=== PATIENT | male | born 1985 | race Asian ===

== ENCOUNTER 2017-06-11 08:37 | Inpatient (IN) | payer MEDICARE, OTHER ==
[~2017-06-11] VITALS: Ht 154.9 cm; Wt 45.8 kg
[2017-06-11] MEDS ORDERED: TOPI25 PO (08:55)
[2017-06-11 09:15] LABS: BASOPHILS % (AUTO) 1.2 % (0.0-2.0); EOSINOPHILS % (AUTO) 0.7 % (1.0-6.0); HEMATOCRIT 48.4 % (41-53); LYMPHOCYTES # (AUTO) 1.8 K/uL (1.0-4.8); LYMPHOCYTES % (AUTO) 25.4 % (22.0-44.0); MEAN CORPUSCULAR HEMOGLOBIN 30.5 pg (26.0-34.0); MEAN CORPUSCULAR HGB CONC 35.1 G/dL (31.0-37.0); MEAN CORPUSCULAR VOLUME 87 fL (80-100); MONOCYTES # (AUTO) 0.6 K/uL (0.1-1.0); MONOCYTES % (AUTO) 8.1 % (2.0-9.0); NEUTROPHILS # (AUTO) 4.6 K/uL (1.8-7.7); NEUTROPHILS % (AUTO) 64.6 % (40.0-70.0); PLATELET COUNT (AUTO) 303 K/uL (150-450); RED BLOOD CELL COUNT(AUTO) 5.57 MIL/uL (4.50-5.90); RED CELL DISTRIBUTION WIDTH 13.4 % (11.5-14.5)
[2017-06-11 09:55] LABS: AMPHET/METH SCREEN,URINE NEGATIVE (NEGATIVE); BARBITURATE SCREEN, URINE NEGATIVE (NEGATIVE); BENZODIAZEPINES SCREEN,URINE NEGATIVE (NEGATIVE); CANNABINOID SCREEN,URINE NEGATIVE (NEGATIVE); COCAINE SCREEN,URINE NEGATIVE (NEGATIVE); METHADONE SCREEN, URINE NEGATIVE (NEGATIVE); OPIATE SCREEN,URINE NEGATIVE (NEGATIVE)
[2017-06-11 09:56] LABS: PHENCYCLIDINE SCREEN,URINE NEGATIVE (NEGATIVE)
[2017-06-11 10:14] LABS: ANION GAP 11 mmol/L (8-16); CALCIUM, TOTAL 9.5 mg/dL (8.8-10.5); CARBON DIOXIDE 29 mmol/L (22-29); CHLORIDE 100 mmol/L (98-107); CREATININE 1.24 mg/dL (0.60-1.30); GLOMERULAR FILTR. RATE CALC > 60 mL/min (>60); GLUCOSE,RANDOM 102 mg/dL (70-110); POTASSIUM 3.4 mmol/L (3.5-5.1); SODIUM SERUM 140 mmol/L (136-145); UREA NITROGEN, BLOOD 18 mg/dL (7-18)
[2017-06-11 10:20] LABS: ALANINE AMINOTRANSFERASE 48 U/L (12-78); ALBUMIN 4.7 g/dL (3.4-5.0); ALKALINE PHOSPHATASE 72 U/L (46-116); ASPARTATE AMINOTRANSFERASE 25 U/L (15-37); BILIRUBIN,TOTAL 0.6 mg/dL (0.1-1.0)
[2017-06-11] MEDS ORDERED: GuaiFENesin/D-METHORPHAN [SUGAR-FREE] 200-20MG/10 ML SYRUP UDCUP PO PRN (14:00)
[2017-06-11] MEDS ORDERED: OLANZapine 5 MG RAPDIS TABLET PO PRN (14:00)
[2017-06-11] MEDS ORDERED: HydrOXYzine PAMOATE 50 MG CAPSULE PO PRN (14:00)
[2017-06-11] MEDS ORDERED: TUBERCULIN, PURIFIED PROTEIN DERIVATIVE 5 TU/0.1 ML SYG ID ONE (14:00)
[2017-06-11] MEDS ORDERED: LOPERAMIDE HCL 2 MG CAPSULE PO PRN (14:00)
[2017-06-11] MEDS ORDERED: MAGNESIUM HYDROXIDE SUSPENSION 30 ML UDCUP PO PRN (14:00)
[2017-06-11] MEDS ORDERED: ZOLPIDEM TARTRATE 10 MG TABLET PO PRN (14:00)
[2017-06-11] MEDS ORDERED: LORazepam 2 MG TABLET PO PRN (14:00)
[2017-06-11] MEDS ORDERED: PROMETHAZINE HCL 25 MG TABLET PO PRN (14:00)
[2017-06-11] MEDS ORDERED: MAG HYDROX/AL HYDROX/SIMETH ES 30 ML SUSPENSION UDCUP PO PRN (14:00)
[2017-06-11] MEDS ORDERED: ACETAMINOPHEN 325 MG TABLET PO PRN (14:00)
[2017-06-11 16:23] VITALS: BP 116/77
[2017-06-11] MEDS ORDERED: POTASSIUM CHLORIDE 20 MEQ ER TABLET PO ONE (17:15)
[2017-06-11] MEDS: THIAMINE HCL 100 MG TABLET PO SCH (17:30)
[2017-06-11] MEDS: PRAZOSIN HCL 1 MG CAPSULE PO SCH ×2 (20:58→21:00)
[2017-06-11] MEDS: OLANZapine 5 MG RAPDIS TABLET PO SCH ×2 (20:59→21:00)
[2017-06-12 06:34] VITALS: BP 126/83
[2017-06-12 08:23] VITALS: BP 116/81
[2017-06-12 08:29] LABS: BASOPHILS % (AUTO) 0.6 % (0.0-2.0); EOSINOPHILS % (AUTO) 0.5 % (1.0-6.0); HEMATOCRIT 47.7 % (41-53); HEMOGLOBIN 16.6 g/dL (13.5-17.5); LYMPHOCYTES % (AUTO) 26.8 % (22.0-44.0); MEAN CORPUSCULAR HEMOGLOBIN 30.5 pg (26.0-34.0); MEAN CORPUSCULAR HGB CONC 34.8 G/dL (31.0-37.0); MEAN CORPUSCULAR VOLUME 88 fL (80-100); MONOCYTES # (AUTO) 0.7 K/uL (0.1-1.0); MONOCYTES % (AUTO) 9.1 % (2.0-9.0); NEUTROPHILS # (AUTO) 4.7 K/uL (1.8-7.7); PLATELET COUNT (AUTO) 309 K/uL (150-450); RED BLOOD CELL COUNT(AUTO) 5.44 MIL/uL (4.50-5.90); RED CELL DISTRIBUTION WIDTH 13.2 % (11.5-14.5)
[2017-06-12] MEDS: THIAMINE HCL 100 MG TABLET PO SCH ×2 (08:32→16:11)
[2017-06-12] MEDS: MULTIVITAMINS WITH MINERALS, THERAPEUTIC TABLET PO SCH (08:32)
[2017-06-12] MEDS: NALTREXONE HCL 50 MG TABLET PO SCH (08:32)
[2017-06-12] MEDS: FOLIC ACID 1 MG TABLET PO SCH (08:33)
[2017-06-12] MEDS ORDERED: FLUoxetine HCL 20 MG CAPSULE PO SCH (09:00)
[2017-06-12 09:29] LABS: ALANINE AMINOTRANSFERASE 32 U/L (12-78); ALBUMIN 4.5 g/dL (3.4-5.0); ALKALINE PHOSPHATASE 73 U/L (46-116); ANION GAP 7 mmol/L (8-16); ASPARTATE AMINOTRANSFERASE 19 U/L (15-37); BILIRUBIN,TOTAL 0.8 mg/dL (0.1-1.0); CALCIUM, TOTAL 9.3 mg/dL (8.8-10.5); CARBON DIOXIDE 30 mmol/L (22-29); CHLORIDE 103 mmol/L (98-107); CHOL/HDL RATIO 2.9 (4.2-7.3); CHOLESTEROL 207 mg/dL (131-200); CREATININE 1.21 mg/dL (0.60-1.30); FREE T4 (FREE THYROXINE) 1.17 ng/dL (0.76-1.46); GLOMERULAR FILTR. RATE CALC > 60 mL/min (>60); GLUCOSE,RANDOM 114 mg/dL (70-110); HDL CHOLESTEROL 71 mg/dL (40-60); LDL CHOL (CALC.) 127 mg/dL (0-130); POTASSIUM 3.5 mmol/L (3.5-5.1); SODIUM SERUM 140 mmol/L (136-145); THYROID STIMULATING HORMONE 1.78 uIU/mL (0.36-3.74); TOTAL PROTEIN, SERUM 8.7 g/dL (6.4-8.2); TRIGLYCERIDES 45 mg/dL (15-150)
[2017-06-12 09:30] LABS: HEMOGLOBIN A1C 4.9 % (4.5-6.2)
[2017-06-12 09:34] LABS: UREA NITROGEN, BLOOD 17 mg/dL (7-18)
[2017-06-12 16:10] VITALS: BP 138/76
[2017-06-12] MEDS: MIRTAZAPINE 15 MG TABLET PO SCH (20:21)
[2017-06-12] MEDS: OLANZapine 5 MG RAPDIS TABLET PO SCH (20:22)
[2017-06-13 06:00] VITALS: BP 116/81
[2017-06-13 08:28] VITALS: BP 121/81
[2017-06-13] MEDS: THIAMINE HCL 100 MG TABLET PO SCH ×2 (10:14→17:01)
[2017-06-13] MEDS: MULTIVITAMINS WITH MINERALS, THERAPEUTIC TABLET PO SCH (10:14)
[2017-06-13] MEDS: NALTREXONE HCL 50 MG TABLET PO SCH (10:14)
[2017-06-13] MEDS: FOLIC ACID 1 MG TABLET PO SCH (10:14)
[2017-06-13] MEDS ORDERED: OLAN5TAB30 PO (13:46)
[2017-06-13] MEDS ORDERED: MIRT15 PO (13:46)
[2017-06-13] MEDS ORDERED: NALT50TA PO (13:46)
[2017-06-13 16:37] VITALS: BP 137/78
[2017-06-13] MEDS: MIRTAZAPINE 15 MG TABLET PO SCH (20:57)
[2017-06-13] MEDS: OLANZapine 5 MG RAPDIS TABLET PO SCH (20:58)
[2017-06-14] MEDS ORDERED: OLAN5TAB40 PO (05:18)
[2017-06-14] MEDS ORDERED: NALT50TA6 PO (05:18)
[2017-06-14] MEDS ORDERED: MIRT15 PO (05:18)
[2017-06-14 06:26] VITALS: BP 125/78
[2017-06-14 08:20] VITALS: BP 140/89
[2017-06-14] MEDS: MULTIVITAMINS WITH MINERALS, THERAPEUTIC TABLET PO SCH (08:33)
[2017-06-14] MEDS: THIAMINE HCL 100 MG TABLET PO SCH (08:33)
[2017-06-14] MEDS: NALTREXONE HCL 50 MG TABLET PO SCH (08:33)
[2017-06-14] MEDS: FOLIC ACID 1 MG TABLET PO SCH (08:33)
== END 2017-06-14 13:05 | disposition home or self-care (01) | DRG 885 ==
LOC: EMS 08:39 → B2S 14:22
PROVIDERS: ADMIT Psychiatry & Neurology Psychiatry; ATTEND Psychiatry & Neurology Psychiatry
DX: F29 Unspecified psychosis not due to a substance or known physiological condition (principal); R45.851 Suicidal ideations; Z91.19 Patient's noncompliance with other medical treatment and regimen; F12.90 Cannabis use, unspecified, uncomplicated; G43.909 Migraine, unspecified, not intractable, without status migrainosus; F32.9 Major depressive disorder, single episode, unspecified; F43.10 Post-traumatic stress disorder, unspecified; F41.9 Anxiety disorder, unspecified; Z65.3 Problems related to other legal circumstances; Z79.899 Other long term (current) drug therapy
CPT/HCPCS: 83036; 84439; 84443; 86592; G0480